=== PATIENT | male | born 1970 | race Caucasian/White ===

== ENCOUNTER → 2023-09-12 12:59 | Outpatient (REF) | payer OTHER, SELFPAY | LOC: RAD 12:59 | PROVIDERS: ATTENDING PHYSICIAN Specialist; FAMILY PHYSICIAN Internal Medicine | DX: Q61.2 Polycystic kidney, adult type (principal) | CPT/HCPCS: 76775 ==

== ENCOUNTER → 2025-05-03 13:05 | Outpatient (REF) | payer OTHER, SELFPAY | LOC: HWRAD 13:05 | PROVIDERS: ATTENDING PHYSICIAN Family Medicine | DX: J32.9 Chronic sinusitis, unspecified (principal) | CPT/HCPCS: 70486 ==

== ENCOUNTER → 2025-05-21 13:08 | Outpatient (REF) | payer OTHER, SELFPAY | LOC: HWRAD 13:08 | PROVIDERS: ATTENDING PHYSICIAN Specialist; FAMILY PHYSICIAN Family Medicine | DX: Q61.2 Polycystic kidney, adult type (principal); R31.0 Gross hematuria | CPT/HCPCS: 74176 ==